=== PATIENT | male | born 1995 | race Caucasian/White ===

== ENCOUNTER 2018-01-16 13:57 | Emergency (ER) | payer SELFPAY ==
[2018-01-16 13:58] VITALS: BP 159/100; PULSE 88; RESP 16; TEMP 36.8; O2SAT 100; BMI 23.3
--- NOTE | 2018-01-16 14:20 | EKG12_ITS ---
Test Reason : HEADACHE Blood Pressure : / mmHG Vent. Rate : 064 BPM Atrial Rate : 064 BPM P-R Int : 134 ms QRS Dur : 086 ms QT Int : 382 ms P-R-T Axes : 067 060 047 degrees QTc Int : 394 ms Normal sinus rhythm with sinus arrhythmia Normal ECG Confirmed by AYAZ LEIGH, WILD ([id number]), editor publications KARINA KOROMA ([id number]) on 01/19/2018 3:01:58 PM Referred By: GABBI Confirmed By:WILD JACOME MD
--- NOTE | 2018-01-16 14:20 | CT_ITS ---
STUDY: CT BRAIN WITHOUT CONTRAST REASON FOR EXAM: Male, 22 years old. Headache after closed head injury and fall last evening. Possible loss of consciousness and/or syncope. RADIATION DOSAGE (If Supplied By Facility): CTDIvol = ( 44.99 ) mGy, DLP = ( 779.24 ) mGycm TECHNIQUE: Transaxial CT imaging of the brain was performed without administration of intravenous contrast material. Multiplanar reformations are submitted for interpretation. Individualized dose optimization techniques were used for this CT. COMPARISON: None. FINDINGS: Normal soft tissue structures. Normal calvarium. Normal size ventricles and extra-axial spaces for the patient's age. Normal white matter tracts of the cerebral hemispheres. Normal basal ganglia and thalami. Normal brainstem. Normal cerebellum. There is no intracranial hemorrhage. There are no findings of an acute ischemic infarction. Normal visualized paranasal sinuses. CT/Brain/Head without Contrast IMPRESSION: No CT evidence of acute intracranial hemorrhage. Electronically Signed: Yarely Sanchez MD at 15:02 EDT , Service support ,
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
[2018-01-16] MEDS: Acetaminophen 500 MG Tablet 1000 MG PO (14:24)
[2018-01-16 15:32] VITALS: BP 150/89; PULSE 80; RESP 14; O2SAT 99
== END 2018-01-16 15:33 | disposition home or self-care (01) ==
LOC: ED 14:31
PROVIDERS: Emergency Provider Emergency Medicine
DX: R55 Syncope and collapse (principal); S09.90XA Unspecified injury of head, initial encounter; W10.9XXA Fall (on) (from) unspecified stairs and steps, initial encounter; Y93.89 Activity, other specified; Y92.009 Unspecified place in unspecified non-institutional (private) residence as the place of occurrence of the external cause; Y99.8 Other external cause status
CPT/HCPCS: 70450; 93005; 99283

== ENCOUNTER 2019-01-03 12:44 | Emergency (ER) | payer MEDICAID, SELFPAY ==
[2019-01-03 12:46] VITALS: BP 141/102; PULSE 86; RESP 12; TEMP 36.3; O2SAT 100; BMI 22.8
[2019-01-03] MEDS: Diphth,Pertuss(Acell),Tet Vac 0.5 ML Vial IM (13:35)
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
[2019-01-03 14:01] VITALS: RESP 12
== END 2019-01-03 14:29 | disposition home or self-care (01) ==
PROVIDERS: Emergency Provider Emergency Medicine
DX: S81.841A Puncture wound with foreign body, right lower leg, initial encounter (principal); Z23 Encounter for immunization; W45.0XXA Nail entering through skin, initial encounter; W29.4XXA Contact with nail gun, initial encounter; Y93.89 Activity, other specified; Y92.89 Other specified places as the place of occurrence of the external cause; Y99.0 Civilian activity done for income or pay
CPT/HCPCS: 10120; 90471; 90715; 99283

== ENCOUNTER 2020-06-25 23:52 | Emergency (ER) | payer SELFPAY ==
[2020-06-25 23:52] VITALS: BP 150/90; PULSE 72; RESP 18; TEMP 36.6; O2SAT 98; BMI 24.3
--- NOTE | 2020-06-26 00:13 | ED.VIS.GEN ---
History of Present Illness Chief Complaint: Dental Informant: Patient Onset: Weeks - 1 week Context: Gradual Onset Timing: Waxes and wanes Current Severity: Moderate Maximum Severity: Moderate Narrative: She presents with left lower dental pain for the past week. He states he had a tooth pulled quite some time ago to that area will intermittently get pain. No recent dental injury. He has been taking Tylenol and using Orajel. Past Medical History - Allergies and Home Meds Allergies/Adverse Reactions: Allergies No Known Allergies Allergy (Verified 06/25/20 23:55) Primary Care Physician: Care Physician,No Primary [Primary Care Provider] - Past Medical History: None Smoking Status: Current every day smoker Review of Systems General: Denies: Chills, Fever Eyes: Denies: Visual changes - bilaterally ENT: Reports: - - Left lower dental pain. Denies: Bilateral ear pain Cardiovascular: Denies: Chest pain Respiratory: Denies: Dyspnea, Cough Gastrointestinal: Denies: Abdominal pain, Nausea, Vomiting, Diarrhea Genitourinary: Denies: Dysuria Musculoskeletal: Denies: Swelling, Extremity Pain Skin: Denies: Rash Neurological: Denies: Headache Hematologic: Denies: Easy bruising, Easy bleeding Allergy: Denies: Uticaria Physical Exam Vital Signs/Narrative: Vital Signs Temp Pulse Resp BP Pulse Ox 06/25/20 23:52 97.9 F 72 18 150/90 H 98 Inital Vital Signs reviewed: Yes General: Well nourished, Well developed Head: Normocephalic ENT: Moist mucous membranes, - - Left mandibular first molar has been broken off at the gumline. There is some gum swelling. The wisdom tooth had been previously extracted. The posterior surface of the second molar is fractured. Posterior pharynx examination is normal. No evidence of Corky's angina. Neck: Supple, Nontender Cardiovascular: Regular rate, Regular rhythm Respiratory: No distress, CTA bilaterally Abdomen: Soft, Nontender Skin: Normal color Neurological: Alert, Oriented x3 Psychological: Normal affect Diagnostic/Tx/Re-eval - Medical Decision Making Patient be treated with Pen-Vee K and naproxen, first doses given here. He is given a dental clinic referral list. ED Disposition - Plan for ED Patient: Disposition: Home or Assisted Living Diagnosis: Odontalgia Instructions: ED Tooth Pain Prescriptions: Naproxen [Naprosyn] 500 mg PO BID PRN PRN #20 tab PRN Reason: Pain Score 4-10/10 Transmission Status: Pending to [facility] Penicillin V Potassium 500 mg PO 4X/DAY #40 tab Transmission Status: Pending to [facility] Additional Instructions: Dental referral list provided
[2020-06-26] MEDS: Penicillin Vk 250 MG Tablet 500 MG PO (00:40)
[2020-06-26] MEDS: Naproxen 500 MG Tablet PO (00:40)
[2020-06-26 00:42] VITALS: RESP 16
== END 2020-06-26 00:44 | disposition home or self-care (01) ==
LOC: ED 06-26 00:24
PROVIDERS: Emergency Provider Emergency Medicine
DX: K08.89 Other specified disorders of teeth and supporting structures (principal); F17.200 Nicotine dependence, unspecified, uncomplicated
CPT/HCPCS: 99283

== ENCOUNTER 2021-08-24 10:22 | Emergency (ER) | payer SELFPAY ==
[2021-08-24 10:24] VITALS: BP 126/70; PULSE 61; RESP 17; TEMP 36.1; O2SAT 99; BMI 23.1
--- NOTE | 2021-08-24 10:33 | EDS_ITS ---
HPI History of Present Illness Chief Complaint: Abscess Informant: patient Onset/Context/Timing Onset: Month(s) (2) Context: Gradual Onset Timing: Continuous Quality: sore at times Location: forehead Current Severity: Moderate Maximum Severity: Moderate Worsened by: palpation Relieved by: leaving alone Associated Symptoms Associated Symptoms: none. no spont d/c. Narrative Narrative: Patient presents saying that he has a cyst on his forehead that has been growing for 2 months and it is time to take it off. He states occasionally it is sore but for the most part not. He denies any spontaneous drainage. States he has had these on his buttocks at times in the past but never on his face. PFSH PFSH Medical History no medical history no medical history Home Medications sulfamethoxazole-trimethoprim 1 tab PO BID #20 tablet 08/24/21 [Rx Last Taken Unknown] Allergy/AdvReac Type Severity Reaction Status Date / Time pine nut Allergy sinus Verified 08/24/21 10:23 congestion Surgical History no surgical history Social History Smoking Status: Light Smoker (<10/day) ROS ROS ED Constitutional Constitutional ED: Denies chills or fever(s) Eyes Eyes: Denies change in vision or diplopia ENT ENT ED: Denies rhinorrhea or sore throat Cardiovascular Cardiovascular: Denies chest pain or palpitations Respiratory/Chest Respiratory/Chest: Denies cough or dyspnea Gastrointestinal Gastrointestinal: Denies abdominal pain, diarrhea, nausea or vomiting Genitourinary Genitourinary ED: Denies dysuria or hematuria Musculoskeletal Musculoskeletal: Denies back pain or neck pain Integumentary Reports as per HPI and other Details: forehead lump ; Denies rash Neurologic Neurologic: Denies headache(s), paresthesias or weakness Psychiatric Psychiatric: Denies anxiety or suicidal thoughts EXAM Physical Exam Const Vital Signs: 08/24/21 10:24 Temperature 97.0 F L Temperature Source Temporal Pulse Rate 61 Respiratory Rate 17 Blood Pressure 126/70 H Blood Pressure Mean 88 Pulse Ox 99 Oxygen Delivery Method Room Air Positive well nourished and well developed General Appearance ED: well developed and NAD HEENT Reports moist mucous membranes normocephalic and atraumatic Eyes PERRL and EOMs intact bilaterally Neuro oriented x3, CN's II-XII intact bilaterally and no sensory deficits noted Sensorium / Orientation: awake and alert Motor Exam: strength 5/5 throughout Skin no rashes or lesions noted and no wounds Skin Narrative: Small tender 1.5 cm subcutaneous lump that is mobile without surrounding erythema or pustule or other skin lesion mid upper forehead MDM MDM MDM Narrative Medical decision making narrative: After aspirating this lesion it appears to be a small abscess with the capsule. I advised that the capsule will take some time to go away. We will place him on Bactrim, and advised that he follow-up, i f the capsule does not go away, and he has persistent symptoms he may need to follow-up with plastics. Procedures Other Procedures Procedure(s): Simple incision and drainage forehead abscess --local 0.5 cc 1% lidocaine after isopropanol prep, followed by chlorhexidine prep and aspiration of the center of the lesion with a #18 needle yielding small amount of bloody purulent material. No complications, tolerated well. Dressed with bacitracin afterwards. Discharge Plan Triage Chief Complaint: Abscess ED Provider: Wyatt Rhodes Dx/Rx/DC Orders Clinical Impression: Abscess of face Instructions: ED Abscess Incision And Drainage Prescriptions: New sulfamethoxazole-trimethoprim [sulfamethoxazole-trimethoprim] 1 TABLET tablet 1 tab PO BID Qty: 20 RF: 0 Primary Care Provider: Care Physician,No Primary Referrals: Ga Diez MD [STAFF PHYSICIAN] - As Needed Care Physician,No Primary [Primary Care Provider] - Disposition Disposition: Home, Self Care
[2021-08-24] MEDS: Lidocaine 1% (20 ml mdv) 20 ML Vial INFILT (11:09)
[2021-08-24 12:21] VITALS: BP 108/77; PULSE 62; RESP 15; O2SAT 97
== END 2021-08-24 12:22 | disposition home or self-care (01) ==
PROVIDERS: Emergency Provider Emergency Medicine
DX: L02.01 Cutaneous abscess of face (principal); F17.200 Nicotine dependence, unspecified, uncomplicated
CPT/HCPCS: 10160; 99282

== ENCOUNTER 2024-07-21 12:51 | Emergency (ER) | payer MEDICAID, SELFPAY ==
[2024-07-21 12:52] VITALS: BP 108/85; PULSE 88; RESP 14; TEMP 36.2; O2SAT 97; BMI 27.6
--- NOTE | 2024-07-21 13:30 | ED.VIS.DENTA ---
HPI History of Present Illness Chief Complaint: Dental Informant: patient Onset/Context/Timing Onset: Weeks (1) Context: Gradual Onset Timing: Continuous Quality: Aching, stabbing Location: Left upper molars Worsened by: Chewing Relieved by: - (Nothing) Associated Symptoms Assocated Symptom - Dental: cold sensitivity and hot sensitivity; Negative for fever, jaw swelling or face swelling Narrative Narrative: Patient presents with dental pain that has been getting worse over the past week. Patient states this is getting worse. Patient describes it as aching and stabbing. Patient states it is mainly over the left upper molars. Patient states he has a dental appointment next week. Patient states his pain is worse with chewing. Patient is nothing seems to help with it. Patient does admit to some hot and cold sensitivity. Patient denies any fevers or chills. PFSH PFSH Medical History no medical history no medical history Home Medications ?Medication ?Instructions ?Recorded ?Last Taken ?Type penicillin V potassium 500 mg 500 mg PO 4X/DAY #40 tabs 07/21/24 Unknown Rx tablet Allergy/AdvReac Type Severity Reaction Status Date / Time pine nut Allergy sinus Verified 07/21/24 12:52 congestion Surgical History (Updated 07/21/24 @ 13:[address] Rios Sykes DO) History of tonsillectomy and adenoidectomy Social History Smoking Status: Light Smoker (<10/day) ROS ROS ED Constitutional Constitutional ED: Denies chills or fever(s) Eyes Eyes: Denies blurry vision or change in vision ENT ENT ED: Reports rhinorrhea; Denies sore throat Cardiovascular Cardiovascular: Denies chest pain or palpitations Respiratory/Chest Respiratory/Chest: Denies cough or dyspnea Gastrointestinal Gastrointestinal: Denies nausea or vomiting Genitourinary Genitourinary ED: Denies dysuria or hematuria Musculoskeletal Musculoskeletal: Reports back pain; Denies neck pain Integumentary Denies abscess or rash Neurologic Neurologic: Reports headache(s); Denies weakness Allergic/Immunologic Allergic/Immunologic ED: Denies mouth swelling or urticaria EXAM Physical Exam Const Vital Signs: 07/21/24 12:52 Temperature 97.2 F L Temperature Source Temporal Pulse Rate 88 Respiratory Rate 14 Blood Pressure 108/85 H Blood Pressure Mean 92 Pulse Ox 97 Oxygen Delivery Method Room Air Positive well nourished and well developed General Appearance ED: well developed and NAD HEENT HEENT Narrative: There is a dental carry noted over the left upper first molar. There is gingival edema around this tooth. There is no discharge or drainage. There is no fluctuance. There is no evidence of any abscess. There is no sublingual edema. There is no evidence of Lázaro's angina. Oropharynx is clear. Airway is patent. There is no trismus noted. Mouth ED: Yes oral and palatal mucosa normal, Yes lips normal and Yes tongue normal Mouth: oral and palatal mucosa normal, lips normal and tongue normal Teeth and Gingiva: caries and gingiva abnormal Positive for gingival edema Throat: posterior oropharynx normal Neck supple and no JVD General: Negative for anterior neck swelling, tenderness or submandibular swelling Neuro oriented x3, CN's II-XII intact bilaterally, moves all extremities, no focal motor deficits and no sensory deficits noted Sensorium / Orientation: alert Motor Exam: strength 5/5 throughout Psych mental status grossly normal MDM MDM Treatment and Re-Evaluation Narrative: Smoking cessation was discussed. Patient was given a dose of Pen-Vee K here. Patient was given a prescription for Pen-Vee K. Patient was instructed continue Tylenol and ibuprofen as needed for pain. Patient was instructed to follow-up with his dentist next week as scheduled. Patient understood and was agreeable with the plan. All questions were answered. Discharge Plan Triage Chief Complaint: Dental ED Provider: Rios Sykes Dx/Rx/DC Orders Clinical Impression: Infected dental caries, Tobacco use disorder Instructions: ED Dental Pain, ED Dental Cavity Prescriptions: New penicillin V potassium 500 mg tablet 500 mg PO 4X/DAY Qty: 40 0RF Primary Care Provider: Care Physician,No Primary Referrals: Saray Serrano [Non-Staff] - [facility] appointment Care Physician,No Primary [Primary Care Provider] - Print Language: Pashto Disposition Disposition: Home, Self Care
[2024-07-21] MEDS: Acetaminophen 500 MG Tablet 1000 MG PO (13:52)
[2024-07-21] MEDS: Penicillin Vk 250 MG Tablet 500 MG PO (13:52)
[2024-07-21 13:56] VITALS: BP 136/76; PULSE 66; RESP 16; TEMP 37.1; O2SAT 98
== END 2024-07-21 13:57 | disposition home or self-care (01) ==
LOC: ED 13:44
PROVIDERS: Emergency Provider Emergency Medicine; PCP Nurse Practitioner Family; Visit Provider Emergency Medicine
DX: K04.7 Periapical abscess without sinus (principal); K02.9 Dental caries, unspecified; F17.200 Nicotine dependence, unspecified, uncomplicated
CPT/HCPCS: 99283

== ENCOUNTER 2025-03-09 03:01 | Emergency (ER) | payer SELFPAY ==
[2025-03-09 03:04] VITALS: BP 148/97; PULSE 92; RESP 18; TEMP 36.9; O2SAT 99; BMI 26.0
--- NOTE | 2025-03-09 03:43 | EX.ED.DYSGE1 ---
HPI History of Present Illness Chief Complaint: Abscess Informant: patient Narrative Narrative: 29-year-old male presents 3:30 AM for tender swollen area that has been draining pus off-and-on in his perineum for the past 6 months, and vomiting which is often dry heaving after drinking fluids and sometimes after eating foods for the past 3 months. He denies any abdominal pain. He denies any fevers or chills. He has loose stools but no melena or blood. No hematemesis or coffee-ground emesis. No chest symptoms. PFSH PFSH Medical History no medical history no medical history Home Medications ?Medication ?Instructions ?Recorded ?Last Taken ?Type ondansetron 8 mg disintegrating 8 mg PO Q8H PRN nausea and 03/09/25 Unknown Rx tablet vomiting #20 tabs pantoprazole 40 mg tablet,delayed 40 mg PO DAILY #30 tabs 03/09/25 Unknown Rx release sulfamethoxazole 800 1 tab PO BID #14 TABLETS 03/09/25 Unknown Rx mg-trimethoprim 160 mg tablet Allergy/AdvReac Type Severity Reaction Status Date / Time pine nut Allergy sinus Verified 03/09/25 03:06 congestion Surgical History History of tonsillectomy and adenoidectomy Social History Smoking Status: Light Smoker (<10/day) ROS ROS ED Constitutional Constitutional ED: Denies chills or fever(s) Eyes Eyes: Denies change in vision or diplopia ENT ENT ED: Denies rhinorrhea or sore throat Cardiovascular Cardiovascular: Denies chest pain or palpitations Respiratory/Chest Respiratory/Chest: Denies cough or dyspnea Gastrointestinal Gastrointestinal: Reports diarrhea, nausea and vomiting; Denies abdominal pain, hematemesis, hematochezia or melena Genitourinary Genitourinary ED: Denies dysuria or hematuria Musculoskeletal Musculoskeletal: Denies back pain or neck pain Integumentary Reports abscess; Denies rash Neurologic Neurologic: Denies headache(s), paresthesias or weakness Psychiatric Psychiatric: Denies anxiety or suicidal thoughts EXAM Physical Exam Const Vital Signs: 03/09/25 03:04 Temperature 98.4 F Temperature Source Oral Pulse Rate 92 Respiratory Rate 18 Blood Pressure 148/97 H Blood Pressure Mean 114 Pulse Ox 99 Oxygen Delivery Method Room Air Positive well nourished and well developed General Appearance ED: well developed and NAD HEENT Reports moist mucous membranes normocephalic and atraumatic Eyes PERRL and EOMs intact bilaterally Neck full ROM and supple Resp normal respiratory effort and clear to auscultation bilaterally Cardio regular rate, regular rhythm and no murmurs GI non-tender and non-distended Auscultation: normoactive bowel sounds Palpation: soft Narrative: In the perineum, there is a tender area to the right of midline, and there is a pinhole sized hole where pus is expressible from. There is no overlying erythema. If there is an abscess cavity it seems relatively shallow and elongated may be 3 cm. There is no scrotum involvement. There is no perianal involvement. Back/Spine no CVA tenderness General Back: other FROM Extremity normal to inspection General Extremety ED: Negative for edema, pulses abnormal or tenderness General Extremity: Negative for edema or pulses abnormal Neuro oriented x3, CN's II-XII intact bilaterally and no sensory deficits noted Sensorium / Orientation: awake and alert Motor Exam: strength 5/5 throughout Skin no rashes or lesions noted and no wounds MDM MDM MDM Narrative Medical decision making narrative: I am willing to do some screening labs on this patient and perform incision and drainage locally in order to evacuate the abscess in his perineum. He is amenable to that. He signed consent. See the procedure note. He is instructed to remove the gauze in 2 days, he will be placed on Bactrim, and I did review his labs. He has a couple of abnormal liver enzymes, AST and ALT just barely. I talked him about this he does indeed drink alcohol quite a bit. He states he drinks 3 or 4 tall beers about every other night. This probably explains the elevated liver enzymes. My suspicion is that it explains his vomiting as well. I am putting him on pantoprazole and advising that he curb his alcohol use, and follow-up. Lab Data Attestation: I reviewed the patient's lab results. Labs: Laboratory Results - last 24 hr 03/09/25 03:56 WBC 6.6 RBC 4.70 Hgb 15.4 Hct 42.4 MCV 90.2 MCH 32.8 H MCHC 36.3 H RDW Std Deviation 39.5 RDW Coeff of Dayanara 11.9 Plt Count 207 MPV 8.4 Immature Gran % (Auto) 0.300 Neut % (Auto) 51.7 Lymph % (Auto) 36.0 Sebastian % (Auto) 9.1 Eos % (Auto) 1.8 Baso % (Auto) 1.1 H Absolute Neuts (auto) 3.4 Absolute Lymphs (auto) 2.38 Nucleated RBC % 0 Sodium 135 Potassium 3.8 Chloride 99 Carbon Dioxide 23.0 Anion Gap 13 BUN 10 Creatinine 0.97 Estim Creat Clear Calc 107.73 Est GFR (MDRD) Non-Af 107 BUN/Creatinine Ratio 9.9 L Glucose 109 H Calcium 8.7 Total Bilirubin 0.81 AST 137 H ALT 114 H Alkaline Phosphatase 116 Total Protein 6.3 Albumin 3.6 Globulin 2.7 Albumin/Globulin Ratio 1.3 Procedures Other Procedures Procedure(s): Complex abscess incision and drainage: After informed written consent from the patient after discussing pros and cons, cutaneous abscess in the right perineum was prepped and draped in a sterile fashion with chlorhexidine, locally anesthetized with 2 cc of plain 1% lidocaine, incised superficially with a #11 blade, a small-moderate amount of purulent material was expressed, the cavity was probed and deloculated posteriorly not to the perianal area, about 3 cm. I was able to irrigate the cavity gently with sterile saline, and pack it with a small amount of quarter inch gauze. Tolerated well no complications, dressing placed. Discharge Plan Triage Chief Complaint: Abscess ED Provider: Wyatt Rhodes Dx/Rx/DC Orders Clinical Impression: Acute alcoholic gastritis without hemorrhage, Cutaneous abscess of perineum Instructions: ED Abscess Incision And Drainage, ED Gastritis Ulcer No Abx Prescriptions: New sulfamethoxazole-trimethoprim 800-160 mg tablet 1 tab PO BID Qty: 14 0RF ondansetron 8 mg tablet,disintegrating 8 mg PO Q8H PRN (Reason: nausea and vomiting) Qty: 20 0RF pantoprazole 40 mg tablet,delayed release (DR/EC) 40 mg PO DAILY Qty: 30 0RF Primary Care Provider: Socorro Vital Referrals: Robson Szymanski MD [Med Staff - Active Staff] - 1 Week if not improving (For abscess) Socorro Vital, HOSPICE COORDINATOR-C [Primary Care Provider] - 1-2 Weeks (Call for appointment) Activity Restrictions/Additional Instructions: Try to leave packing intact for 48 hours and then remove and discard. If it falls out earlier than that, do not worry about it, just continue dressing changes. If there is any water that gets into the area after a shower or what not, you may gently apply pressure to the surrounding area to express it prior to a new dressing change. Antibiotic ointment on the area with these dressing changes okay as well. If you are concerned about it recurring or getting worse, return to the ER for reevaluation. Try to curb your alcohol use. Print Language: Norwegian Disposition Disposition: Home, Self Care
[2025-03-09 04:02] LABS: Absolute Lymphocyte Count 2.38 X10^3/uL (0.83-4.51); Absolute Neutrophil Count 3.4 X10^3/uL (2.0-7.7); Basophil# 0.07 X10^3/uL; Basophil% 1.1 % (0-1); Eosinophil# 0.12 X10^3/uL; Eosinophils% 1.8 % (0-5); Hematocrit 42.4 % (40-54); Hemoglobin 15.4 g/dL (13.0-16.5); Lymphocyte # 2.38 X10^3/ul (0.83-4.51); Mean Corp Hgb Conc 36.3 g/dL (32-36); Mean Corpuscular Hgb 32.8 pg (27.0-32.0); Mean Corpuscular Volume 90.2 fL (80-94); Mean Platelet Vol. 8.4 fl (6.2-12.0); Monocyte% 9.1 % (0-10); NRBC Flagged by Analyzer 0 % (0-5); Neutrophil # 3.42 X10^3/uL (2.7-7.7); Neutrophil % 51.7 % (47-70); Platelet Count 207 K/mm3 (150-450); RBC Distribution Width CV 11.9 % (11.6-14.6); RBC Distribution Width SD 39.5 fl (35.1-43.9); White Blood Count 6.6 K/mm3 (4.4-11.0)
[2025-03-09 04:45] LABS: ALB/GLOB Ratio 1.3 RATIO (0.9-2.4); AST(SGOT) 137 U/L (<=37); Alanine Aminotransfer ALT/SGPT 114 U/L (<=46); Albumin, Serum 3.6 g/dL (3.5-5.0); Alkaline Phosphatase 116 U/L (40-129); Anion Gap 13 (5-15); BUN 10 mg/dL (4-19); BUN/Creat Ratio 9.9 RATIO (10-20); Calcium,Total 8.7 mg/dL (7.6-11.0); Chloride 99 mmol/L (98-108); Creatinine, Serum 0.97 mg/dL (0.70-1.20); EST Glomerular Filtration Rate 107 (>60); Estimated Creatinine Clearance 107.73 ml/min (50-250); Globulin 2.7 g/dL (2.2-4.2); Glucose 109 mg/dL (70-99); Potassium 3.8 mmol/L (3.3-5.1); Protein, Total 6.3 g/dL (5.9-8.4); Sodium Level 135 mmol/L (133-145); Total Bilirubin 0.81 mg/dL (0.00-1.30)
[2025-03-09 05:12] VITALS: BP 132/78; PULSE 87; RESP 16; TEMP 36.6; O2SAT 96
== END 2025-03-09 05:12 | disposition home or self-care (01) ==
PROVIDERS: Emergency Provider Emergency Medicine; PCP Nurse Practitioner Family; Visit Provider Emergency Medicine
DX: L02.215 Cutaneous abscess of perineum (principal); K29.20 Alcoholic gastritis without bleeding; F17.200 Nicotine dependence, unspecified, uncomplicated
CPT/HCPCS: 10060; 80053; 85025; 99282

== ENCOUNTER 2025-08-02 22:33 | Emergency (ER) | payer MEDICAID, SELFPAY ==
[2025-08-02 22:37] VITALS: BP 146/96; PULSE 91; RESP 16; TEMP 36.9; O2SAT 99; BMI 27.0
[2025-08-02 22:41] VITALS: O2SAT 100
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
[2025-08-03 00:47] VITALS: BP 126/93; PULSE 62; RESP 16; TEMP 36.8; O2SAT 98
== END 2025-08-03 00:49 | disposition home or self-care (01) ==
PROVIDERS: Emergency Provider Emergency Medicine; PCP Nurse Practitioner Family; Visit Provider Emergency Medicine
DX: S61.412A Laceration without foreign body of left hand, initial encounter (principal); S50.12XA Contusion of left forearm, initial encounter; F17.200 Nicotine dependence, unspecified, uncomplicated; V53.6XXA Passenger in pick-up truck or van injured in collision with car, pick-up truck or van in traffic accident, initial encounter
CPT/HCPCS: 73090; 73130; 99285; J2405